=== PATIENT | male | born 1990 | race Two or more races ===

== ENCOUNTER 2018-12-17 17:35 | Emergency (ER) | payer OTHER ==
[~2018-12-17] VITALS: Ht 170.2 cm; Wt 68.0 kg
[2018-12-17 17:35] VITALS: BP 162/113
--- NOTE | 2018-12-17 17:45 | NUR ---
ED Nurse Note: Pt ws brought in by ambulance from work due to seizure activity tonic clonic x 120seconds witnessed by his boss. Oral trauma noted with some dried blood on pt's mouth. Denies any other symptoms. Pt is AAO x4, follows commands with unlabored breathing.
--- NOTE | 2018-12-17 17:48 | NUR ---
ED Nurse Note: Patient is refusing any medical treatment and VS. Pt signed AMA form. Dr Khoury was notified.
--- NOTE | 2018-12-17 18:00 | NUR ---
ED Nurse Note: Dr Munguia at the bed side explaining to the pt the risk and potential complications of not being examined. Pt verbalized understanding of teachings. Pt is AAO x4, ambulatory with steady gait. Left with all belongings. No IV access/ID band.
--- NOTE | 2018-12-17 18:00 | NUR ---
ED Nurse Note: Patient refused vital signs.
--- NOTE | 2018-12-17 18:05 | Emergency Room Report ---
History of Present Illness General Chief Complaint: Seizure Source: Patient Present Illness HPI This patient presents by EMS. 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 He does a lot of heavy lifting and is under motor vehicles all day. He was working all day and per report from EMS the patient was witnessed having a tonic clonic seizure by his boss. He bit his tongue at that time. The patient states that he felt lightheaded but otherwise does not recall the event. The patient has never had a seizure in the past. He does admit to drinking alcohol yesterday. He denies tobacco or drug abuse. He denies recent illness. He denies head trauma. He has no other complaints. Allergies: Coded Allergies: No Known Allergies (Unverified , 12/17/18) Patient History Past Medical History: none Social History: Reports: alcohol use; Denies: smoking, drug use Reviewed Nursing Documentation: PMH: Agreed; PSxH: Agreed Nursing Documentation-PMH Past Medical History: No History, Except For Review of Systems All Other Systems: negative except mentioned in HPI Physical Exam Vital Signs Date Time Temp Pulse Resp B/P (MAP) Pulse Ox O2 Delivery O2 Flow Rate FiO2 12/17/18 17:35 98.1 107 16 162/113 98 Room Air Sp02 EP Interpretation: reviewed, normal General Appearance: no apparent distress, alert, GCS 15, non-toxic Head: normocephalic, atraumatic Eyes: bilateral eye normal inspection, bilateral eye PERRL ENT: hearing grossly normal, no angioedema, normal voice, other - Tongue lacerations w/ recent bleeding on the periphery of the tongue. Neck: full range of motion, supple/symm/no masses Respiratory: no respiratory distress, no retraction, no accessory muscle use, speaking full sentences Gastrointestinal: normal inspection Rectal: deferred Musculoskeletal: back normal, gait/station normal, normal range of motion, non- tender Neurologic: alert, oriented x3, responsive, motor strength/tone normal, sensory intact, speech normal Psychiatric: judgement/insight normal, memory normal, mood/affect normal, no suicidal/homicidal ideation Skin: normal color, no rash, warm/dry, well hydrated Medical Decision Making Diagnostic Impression: Primary Impression: Epileptic seizure, generalized ER Course This patient presents with a first-time seizure. The patient declined all evaluation. He declined my physical exam. He declined an IV and laboratory work. He declined CT of his head. The patient is alert and oriented 3. He has a history and physical exam consistent with first-time seizure. I suspect this patient has polysubstance abuse. Regardless, the patient is alert, articulate incapable of making his own decisions. He was educated that I cannot rule out intracranial bleed, or other intracranial process in addition to any significant laboratory abnormalities or findings on EKG such as a pathologic arrhythmia. The patient continued to decline. The patient left AGAINST MEDICAL ADVICE. Last Vital Signs Date Time Temp Pulse Resp B/P (MAP) Pulse Ox O2 Delivery O2 Flow Rate FiO2 12/17/18 17:42 107 16 Room Air 12/17/18 17:35 98.1 162/113 98 Disposition: AGAINST MEDICAL ADVICE Condition: Stable Referrals: NOT CHOSEN NYDIA/,REFERRING (PCP) Sarah Beth Munguia DO Dec 17, 2018 18:05
== END 2018-12-17 18:00 | disposition left against medical advice (07) ==
LOC: EDBD 17:35 → EMR 17:53
DX: G40.409 Other generalized epilepsy and epileptic syndromes, not intractable, without status epilepticus (principal)
CPT/HCPCS: 99282